=== PATIENT | female | born 1970 | race Caucasian/White ===

== ENCOUNTER 2020-09-13 09:06 | Emergency (ER) | payer MEDICAID ==
[2020-09-13] VITALS (9 sets, daily range): BP systolic 64–105; BP diastolic 31–58
[~2020-09-13] VITALS: Ht 149.9 cm; Wt 51.0 kg
[2020-09-13] MEDS: IV NORMAL SALINE 1,000ML 1,000 ML IV ONE (09:45)
--- NOTE | 2020-09-13 09:49 | PHYS DOC ---
Past History Past Medical History: Other (" Developmental delay") Past Surgical History: No Surgical History Smoking: Non-smoker Alcohol Use: None Drug Use: None Adult General Chief Complaint Chief Complaint: ALTERED MENTAL STATUS HPI HPI Patient is a 50-year-old female presenting via EMS for altered mental status. Patient a poor historian, as a result majority of history obtained by EMS. EMS was called to the house by a mother who is primary commodity merchant. She reports patient has history of developmental delay with no other significant medical issues or known comorbidities, no medications on a daily basis. Reports she is fairly independent of all activities of daily living and does utilize a walker to get around the house. With that said, approximately 4-5 days ago patient has been more weak and lethargic than usual. She has been less mobile preferring her left versus right hip without known fall/trauma and has had steady decline in p.o. intake. Today she was not as responsive to verbal stimuli which concerned mother prompting her to call EMS. On arrival, patient was found to be hypotensive (80/40)and hypoglycemic (25), 250 mls dextrose based solution bolused in route to our ER for evaluation Review of Systems Review of Systems ROS limited due to patient mentation Current Medications Current Medications Current Medications Medications (Trade) Dose Ordered Sig/Carine Start Time Stop Time Status Last Admin Dose Admin Azithromycin (Zithromax) 500 mg STK-MED ONCE 09/13/20 11:13 09/13/20 11:13 DC Azithromycin 500 mg/Sodium Chloride 250 ml @ 250 mls/hr 1X ONCE 09/13/20 11:00 09/13/20 11:59 DC 09/13/20 11:50 250 MLS/HR Ceftriaxone Sodium 2 gm/ Sodium Chloride 100 ml @ 200 mls/hr 1X ONCE 09/13/20 11:00 09/13/20 11:29 DC 09/13/20 11:20 200 MLS/HR Ceftriaxone Sodium (Rocephin) 2 gm STK-MED ONCE 09/13/20 11:13 09/13/20 11:13 DC Fentanyl Citrate (Fentanyl 2ml Vial) 100 mcg 1X ONCE 09/13/20 12:30 09/13/20 12:38 DC 09/13/20 12:43 100 MCG Lidocaine HCl 20 ml STK-MED ONCE 09/13/20 11:22 7/1/21 11:22 DC Sodium Chloride 100 ml @ As Directed STK-MED ONCE 09/13/20 11:13 09/13/20 11:13 DC Physical Exam Physical Exam Constitutional: Pt is alert but not oriented to person place or time. Pale appearing. Appears lethargic HEENT: Head: Normocephalic and atraumatic. TMs clear, no hemotympanum Conjunctivae and EOM are normal. Pupils are equal, round, and reactive to light. Oropharynx is clear and dry No hematomas or lacerations or abrasions to face or scalp OP clear, no blood, no malocclusion, dentition intact but there is poor overall dentition Nares clear, no nasal septal hematoma Midface stable Neck: C-spine midline nontender, no step-offs Cardiovascular: Normal rate, regular rhythm and normal heart sounds. Pulmonary/Chest: Increased work of breathing and accessory muscle use noted in neck only without any obvious/overt respiratory failure, there is wheezes globally on the end expiratory phase and rhonchi present in bilateral bases more prominent on right Abdominal: Soft. Bowel sounds are normal. Pt exhibits no distension. There is no tenderness. Musculoskeletal: Chest wall stable Pelvis tender to palpation bilaterally with concerning visual and palpable abnormality present to right trochanteric head No vertebral TTP and spine without stepoffs Edema present to left upper extremity and right lower extremity 1+ pitting Neurological: Pt is alert but not oriented to person place or time, GCS 11 (E 4, V2, M5) Spontaneously moving all fingers and toes but there is pain with mobilization of bilateral hips and left upper extremity with tenderness and increased edema Motor and sensory function grossly intact Downgoing toes bilaterally Cranial nerves II through XII intact Adequate rectal tone without any visual and/or palpable abnormalities during HEATHER Skin: Skin is warm and dry. No abrasions, no lacerations. There is concerning skin findings over the left nipple, concerning for skin cancer versus potential meta static process. There is peeling and crusting over generalized nipple region covering entirety of nipple and areola, no palpable and/or expressible exudate present Psychiatric: Unable to fully assess Current Patient Data Vital Signs Vital Signs Date Time Temp Pulse Resp B/P (MAP) Pulse Ox O2 Delivery O2 Flow Rate FiO2 09/13/20 09:06 96.9 91 18 81/42 (55) 94 Room Air 09/13/20 10:24 2.0 Vital Signs Date Time Temp Pulse Resp B/P (MAP) Pulse Ox O2 Delivery O2 Flow Rate FiO2 09/13/20 15:57 100 20 79/47 (58) 100 09/13/20 15:15 97.0 09/13/20 12:43 Nasal Cannula 2.0 Lab Results Laboratory Tests Test 09/13/20 09:09 09/13/20 10:25 09/13/20 11:05 09/13/20 11:10 Glucose (Fingerstick) 100 mg/dL White Blood Count 1.5 x10^3/uL Red Blood Count 1.01 x10^6/uL Hemoglobin 3.6 g/dL Hematocrit 11.9 % Mean Corpuscular Volume 117 fL Mean Corpuscular Hemoglobin 35 pg Mean Corpuscular Hemoglobin Concent 30 g/dL Red Cell Distribution Width 26.2 % Platelet Count 34 x10^3/uL Neutrophils (%) (Auto) 75 % Lymphocytes (%) (Auto) 17 % Monocytes (%) (Auto) 7 % Eosinophils (%) (Auto) 2 % Basophils (%) (Auto) 0 % Neutrophils # (Auto) 1.1 x10^3uL Lymphocytes # (Auto) 0.2 x10^3/uL Monocytes # (Auto) 0.1 x10^3/uL Eosinophils # (Auto) 0.0 x10^3/uL Basophils # (Auto) 0.0 x10^3/uL Segmented Neutrophils % 17 % Band Neutrophils % 36 % Lymphocytes % 29 % Atypical Lymphocytes % (Manual) 1 % Monocytes % 10 % Metamyelocytes % 3 % Myelocytes % 2 % Promyelocytes % 2 % Blast Cells % (Manual) % Nucleated Red Blood Cells 12 Platelet Estimate Decreased Polychromasia Slight Poikilocytosis Mod Anisocytosis Marked Macrocytosis Marked Sodium Level 139 mmol/L Potassium Level 4.5 mmol/L Chloride Level 104 mmol/L Carbon Dioxide Level 16 mmol/L Anion Gap 19 Blood Urea Nitrogen 41 mg/dL Creatinine 2.5 mg/dL Estimated GFR (Cockcroft-Gault) 20.2 BUN/Creatinine Ratio 16 Glucose Level 91 mg/dL Lactic Acid Level 6.8 mmol/L Calcium Level 7.3 mg/dL Total Bilirubin 2.2 mg/dL Aspartate Amino Transf (AST/SGOT) 223 U/L Alanine Aminotransferase (ALT/SGPT) 81 U/L Alkaline Phosphatase 408 U/L Troponin I Quantitative 0.060 ng/mL [id number] Natriuretic Peptide 6587 pg/mL Total Protein 4.2 g/dL Albumin 1.9 g/dL Albumin/Globulin Ratio 0.8 Urine Collection Type Unknown Urine Color Yellow Urine Clarity Cloudy Urine pH 5.0 Urine Specific [place] 1.020 Urine Protein Neg Urine Glucose (UA) Neg mg/dL Urine Ketones (Stick) Neg mg/dL Urine Blood Neg Urine Nitrite Neg Urine Bilirubin Small Urine Urobilinogen Dipstick 1.0 mg/dL Urine Leukocyte Esterase Neg Urine RBC 1-2 /HPF Urine WBC 5-10 /HPF Urine Squamous Epithelial Cells Few /LPF Urine Bacteria Many /HPF Urine Hyaline Casts Few /HPF Urine Mucus Mod /LPF Stool Occult Blood Positive Test 09/13/20 14:15 Lactic Acid Level 4.1 mmol/L Current Medications Medications (Trade) Dose Ordered Sig/Carine Route PRN Reason Start Time Stop Time Status Last Admin Dose Admin Sodium Chloride 1,000 ml @ 1,000 mls/hr 1X ONCE IV 09/13/20 09:45 09/13/20 10:49 DC 09/13/20 09:45 1,000 MLS/HR Sodium Chloride 250 ml @ 0 mls/hr 1X ONCE IV 09/13/20 11:00 09/13/20 11:01 DC 09/13/20 11:00 999 MLS/HR Ceftriaxone Sodium 2 gm/ Sodium Chloride 100 ml @ 200 mls/hr 1X ONCE IV 09/13/20 11:00 09/13/20 11:29 DC 09/13/20 11:20 200 MLS/HR Azithromycin 500 mg/Sodium Chloride 250 ml @ 250 mls/hr 1X ONCE IV 09/13/20 11:00 09/13/20 11:59 DC 09/13/20 11:50 250 MLS/HR Fentanyl Citrate (Fentanyl 2ml Vial) 100 mcg STK-MED ONCE .ROUTE 09/13/20 10:58 09/13/20 10:58 DC Sodium Chloride 250 ml @ As Directed STK-MED ONCE .ROUTE 09/13/20 11:12 09/13/20 11:13 DC Azithromycin (Zithromax) 500 mg STK-MED ONCE IV 09/13/20 11:13 09/13/20 11:13 DC Ceftriaxone Sodium (Rocephin) 2 gm STK-MED ONCE IV 09/13/20 11:13 09/13/20 11:13 DC Sodium Chloride 100 ml @ As Directed STK-MED ONCE .ROUTE 09/13/20 11:13 09/13/20 11:13 DC Lidocaine HCl 20 ml STK-MED ONCE .ROUTE 09/13/20 11:22 09/13/20 11:22 DC Fentanyl Citrate (Fentanyl 2ml Vial) 100 mcg 1X ONCE IVP 09/13/20 12:30 09/13/20 12:38 DC 09/13/20 12:43 100 MCG EKG EKG EKG ordered and interpreted by myself 0925 hrs. is sinus rhythm at 91 bpm, unremarkable intervals, no axis deviation, nonspecific T wave abnormality in lead I otherwise no obvious ischemic findings, no STEMI Radiology/Procedures Radiology/Procedures Exam Date: 09/13/2020 10:[address] HEAD/BRAIN WO Indication: Reason: AMS / Spl. Instructions: / History: . TECHNIQUE: Head CT was performed without intravenous contrast. One or more of the following dose reduction techniques were utilized: *Automated exposure control (AEC) *Adjustment of mA and/or kV according to patient size *Use of iterative reconstruction technique *CT scan done according to ALARA, or ALARA/IMAGE GENTLY FINDINGS: The ventricles and sulci are normal for the patient's stated age. There is no evidence of acute intracranial hemorrhage, extra-axial collection, mass effect, midline shift, or acute territorial infarct. No lesion of the skull base or the calvarium is seen. The visualized paranasal sinuses, mastoid air cells and orbits are normal in appearance. IMPRESSION: No evidence for acute intracranial abnormality. Electronically signed by: Easton Rosario MD (09/13/2020 10:04 AM) [id number] ///////////////// Exam Date: 09/13/2020 10:01 AM XR CHEST 1V Indication: Reason: ams, sepsis / Spl. Instructions: / History: . FINDINGS/ IMPRESSION: There are patchy infiltrates and/or atelectasis in the left mid to lower lung lira suspicious for pneumonia. No appreciable pleural effusion or pneumothorax. Follow-up chest radiographs to resolution are recommended. The cardiac silhouette and pulmonary vasculature are within normal limits. Electronically signed by: Easton Rosario MD (09/13/2020 10:05 AM) [id number] ////////////// Exam Date: 09/13/2020 10:01 AM XR PELVIS 1-2V Indication: Reason: ams, sepsis, S/P FALL / Spl. Instructions: / History: . COMPARISON: CT from September 13, 2020 FINDINGS/ IMPRESSION: Subacute or chronic right femoral neck fracture is again seen with superolateral displacement of the shaft. Oblique subacute right subtrochanteric subtrochanter ic fracture is again seen. Alignment and position are similar compared to the prior exam. There is a nondisplaced acute or subacute fracture of the left superior pubic ramus. Mild sclerosis involving the left inferior pubic ramus could represent a healing or healed fracture. Mild degenerative changes seen in the left hip. Degenerative changes are noted in the lower lumbar spine and SI joints. Electronically signed by: Easton Rosario MD (09/13/2020 10:13 AM) [id number] ////////////// Left forearm 2 views. HISTORY: Left lateral epicondyles pain 2 views were taken of the left forearm. There is not evidence of an acute fracture or osseous abnormality. A true lateral view the elbow could potentially be of benefit. There is no osseous abnormality at the lateral epicondyles of the humerus. IMPRESSION: 1. Negative left forearm. Electronically signed by: Tanner Toro MD (09/13/2020 10:44 AM) [id number] //////////////// XR CHEST 1V History: Post central line placement. Comparison: 09/13/2020 Technique: Portable AP radiograph of the chest. Findings: New right internal jugular central venous catheter with tip projecting at the right atrium. Low lung volumes with bilateral infiltrates similar to comparison greatest at the left midlung. No pleural effusion or pneumothorax. Stable cardiomegaly mediastinal silhouette. Impression: 1. New right internal jugular central venous catheter with tip projecting at the right atrium. Electronically signed by: Abraham Sanchez MD (09/13/2020 12:35 PM) [id number] Heart Score C/O Chest Pain: N/A HEART Score for Chest Pain: HEART Score for Chest Pain Response (Comments) Value History Moderately Suspicious 1 ECG Nonspecific Repolarizatio 1 Age >45 - < 65 1 Risk Factors 1 or 2 Risk Factors 1 Troponin >1-<3x Normal Limit 1 Total 5 Risk Factors: Risk Factors: DM, Current or recent (<one month) smoker, HTN, HLP, family history of CAD, obesity. Risk Scores: Risk Factors: DM, Current or recent (<one month) smoker, HTN, HLP, family history of CAD, obesity. Course & Med Decision Making Course & Med Decision Making Airway patent, increased work of breathing present with adequate oxygenation and ventilation, peripheral right AC IV in place on arrival with 250 mils dextrose containing solution administered per EMS and subsequent vitals obtained concerning for profound hypotension Repeat POC glucose obtained and unremarkable. 30 ml/kg IV fluid rehydration bolused with improvement in patient's blood pressure. History limited initially with physical exam concerning for potential respiratory pathogen and bony abnormality to pelvis ER work-up obtained and there was initial concern for pneumonia, IV Rocephin and azithromycin administered. Also concerning for subacute versus chronic fractures of pelvis in absence of any known trauma. I fear breast cancer with metastatic spread given clinical presentation Mother eventually came to ER and further history obtained. She admits there is been no obvious trauma that she was aware of. No fever, sick contacts, recent changes in health, recent travel. Mother reports overall decline, decreased mobility, decreased p.o. intake and skin findings to left breast were all new findings within the past week, I highly doubt this. Mother has been stressed as is currently hospitalized at [facility] with cancer diagnosis. Patient hotlined Verbal and written consent from mother obtained for insertion of right IJ CVL given ongoing hypotension and need for administration of blood products and potential vasopressors. I discussed severity of situation and critical nature of patient, mother wants to keep patient full code I contacted orthopedic surgery at [facility] and reviewed case with them in addition to radiology, there is consensus and fear that these fractures are indeed subacute versus chronic and likely due to undiagnosed metastatic process such as multiple myeloma versus other As such, [facility] was contacted due to need of higher acuity of care than is available at [facility]. Critical Care Time This patient required critical care. Due to the fact that the patient required a significant amount of one on one physician - patient contact time, ordering and review of studies, arranging urgent treatment with development of a management plan, evaluation of patients response to treatment with frequent reassessments, and discussions with other providers this patient required 75 minutes of critical care time. Critical care time was indicated due to the inherent instab ility and/or potential for instability in this patient. The critical care time that is allocated to this patient is above and beyond any time spent on any other billable procedures performed on this patient. Dragon Disclaimer Dragon Disclaimer This electronic medical record was generated, in whole or in part, using a voice recognition dictation system. Central Line Central Line : Central Line Lumen: triple Central Line Procedure: betadine prep, sterile drapes applied, sterile dressing applied Central Line Postion: internal jugular (R) Anesthesia: Lidocaine Progress Indication, emergency vascular access for fluid and drug administration Informed consent. The risks of the procedure including bleeding, pneumothorax and infection were explained to patient's mother mother verbalized the understanding of the procedure and the risks, benefits and alternatives and wished to proceed Patient was placed in Trendelenburg position and the right neck area was prepped and draped in sterile fashion. The area of interest was anesthetized with local anesthetic. Using ultrasound guidance, with the introducer needle bevel orientated inferomedially, the right internal jugular area was entered shallowly advancing with continuous aspiration on the syringe until the right internal jugular vein was entered and there was free flow of venous blood. Salinger technique was then utilized place a central venous catheter over the guidewire and the catheter was secured in place. A portable chest x-ray was ordered to confirm the catheter's position. Estimated blood loss <10ml. Complications none Departure Departure: Impression: Primary Impression: Sepsis due to pneumonia Additional Impressions: Leukopenia Blood loss anemia Thrombocytopenia Closed pelvic fracture Closed fracture of right hip Closed fracture of trochanter of right femur Retraction of left nipple Disposition: [address] [facility] ([facility]) Admitting Physician: Other (dr. lemons) Condition: CRITICAL Referrals: ISSAC GREGORY MD (PCP) Problem Qualifiers ELIZABETH HAYDEN DO Sep 13, 2020 09:49
--- NOTE | 2020-09-13 10:07 | RAD ---
Exam Date: 09/13/2020 10:[address] HEAD/BRAIN WO Indication: Reason: AMS / Spl. Instructions: / History: . TECHNIQUE: Head CT was performed without intravenous contrast. One or more of the following dose re duction techniques were utilized: *Automated exposure control (AEC) *Adjustment of mA and/or kV according to patient size *Use of iterative reconstruction technique *CT scan done according to ALARA, or ALARA/IMAGE GENTLY FINDINGS: The ventricles and sulci are normal for the patient's stated age. There is no evidence of acute int racranial hemorrhage, extra-axial collection, mass effect, midline shift, or acute territorial infarc t. No lesion of the skull base or the calvarium is seen. The visualized paranasal sinuses, mastoid ai r cells and orbits are normal in appearance. IMPRESSION: No evidence for acute intracranial abnormality. Electronically signed by: Easton Rosario MD (09/13/2020 10:04 AM) [id number]
--- NOTE | 2020-09-13 10:08 | RAD ---
Exam Date: 09/13/2020 10:01 AM XR CHEST 1V Indication: Reason: ams, sepsis / Spl. Instructions: / History: . FINDINGS/ IMPRESSION: There are patchy infiltrates and/or atelectasis in the left mid to lower lung lira suspicious for p neumonia. No appreciable pleural effusion or pneumothorax. Follow-up chest radiographs to resolution are recommended. The cardiac silhouette and pulmonary vasculature are within normal limits. Electronically signed by: Easton Rosario MD (09/13/2020 10:05 AM) [id number]
--- NOTE | 2020-09-13 10:15 | RAD ---
Exam Date: 09/13/2020 10:01 AM XR PELVIS 1-2V Indication: Reason: ams, sepsis, S/P FALL / Spl. Instructions: / History: . COMPARISON: CT from September 13, 2020 FINDINGS/ IMPRESSION: Subacute or chronic right femoral neck fracture is again seen with superolateral displacement of the shaft. Oblique subacute right subtrochanteric subtrochanteric fracture is again seen. Alignment and p osition are similar compared to the prior exam. There is a nondisplaced acute or subacute fracture of the left superior pubic ramus. Mild sclerosis i nvolving the left inferior pubic ramus could represent a healing or healed fracture. Mild degenerativ e changes seen in the left hip. Degenerative changes are noted in the lower lumbar spine and SI joint s. Electronically signed by: Easton Rosario MD (09/13/2020 10:13 AM) [id number]
--- NOTE | 2020-09-13 10:38 | RAD ---
EXAMINATION: CT PELVIS WO, 09/13/2020 10:01 AM CLINICAL INDICATION: Fall, hip fracture COMPARISON: Pelvis radiograph same day TECHNIQUE: Helical CT imaging performed of the pelvis without the use of intravenous contrast. Sagitt al and coronal reformats were obtained. One or more of the following individualized dose reduction techniques were utilized for this examinat ion: 1. Automated exposure control 2. Adjustment of the mA and/or kV according to patient size 3. Use of iterative reconstruction technique. FINDINGS: There is a complete, displaced right subcapital femoral neck fracture with proximal and lat eral migration of the femoral shaft. This appears subacute with a small amount of surrounding callus around the femoral head fragment. No bridging bone or callus. There is a subacute/healing nondisplace d right subtrochanteric femoral fracture with callus formation along the shaft but a persistent fract ure lucency. There is a right hip joint effusion and iliopsoas bursitis. . Healing nondisplaced left superior pubic ramus fracture. Diffuse subcutaneous edema in the thighs and lower abdomen. The urinar y bladder is very distended. IMPRESSION: 1. Displaced right subtrochanteric femoral fracture and nondisplaced right subtrochanteric femoral fr acture. These appear subacute with some callus formation, particularly around the subtrochanteric por tion. Small right hip joint effusion and iliopsoas bursitis. 2. Healing left superior pubic ramus fracture. 3. Diffuse subcutaneous edema. 4. Very distended urinary bladder. Electronically signed by: Tiffanie Zeng MD (09/13/2020 10:35 AM) [id number]
[2020-09-13 10:46] LABS: BASO % 0 % (0-3); EOS % 2 % (0-3); LYMPH # 0.2 x10^3/uL (1.0-4.8); LYMPH % 17 % (24-48); MEAN CORPUSCULAR HEMOGLOBIN 35 pg (25-35); MEAN CORPUSCULAR HGB CONC 30 g/dL (31-37); MEAN CORPUSCULAR VOLUME 117 fL (79-100); MONO # 0.1 x10^3/uL (0.0-1.1); MONO % 7 % (0-9); NEUT # 1.1 x10^3uL (1.8-7.7); NEUT % 75 % (31-73); PLATELET COUNT 34 x10^3/uL (140-400); RED BLOOD COUNT 1.01 x10^6/uL (3.50-5.40); RED CELL DISTRIBUTION WIDTH 26.2 % (11.5-14.5)
--- NOTE | 2020-09-13 10:46 | RAD ---
Left forearm 2 views. HISTORY: Left lateral epicondyles pain 2 views were taken of the left forearm. There is not evidence of an acute fracture or osseous abnorma lity. A true lateral view the elbow could potentially be of benefit. There is no osseous abnormality at the lateral epicondyles of the humerus. IMPRESSION: 1. Negative left forearm. Electronically signed by: Tanner Toro MD (09/13/2020 10:44 AM) [id number]
[2020-09-13 10:47] LABS: HEMOGLOBIN 3.6 g/dL (12.0-15.5); WHITE BLOOD COUNT 1.5 x10^3/uL (4.0-11.0)
[2020-09-13 10:48] LABS: HEMATOCRIT 11.9 % (36.0-47.0)
[2020-09-13 10:49] LABS: CALCIUM 7.3 mg/dL (8.5-10.1); CREATININE 2.5 mg/dL (0.6-1.0); GFR 20.2; POTASSIUM 4.5 mmol/L (3.5-5.1)
[2020-09-13] MEDS: IV NORMAL SALINE 250ML 250 ML IV ONE (11:00)
[2020-09-13 11:02] LABS: ALBUMIN 1.9 g/dL (3.4-5.0); ALBUMIN/GLOBULIN RATIO 0.8 (1.0-1.7); TOTAL BILIRUBIN 2.2 mg/dL (0.2-1.0); TOTAL PROTEIN 4.2 g/dL (6.4-8.2)
[2020-09-13] MEDS ORDERED: IV NORMAL SALINE 250ML 250 ML ONE (11:12)
[2020-09-13] MEDS ORDERED: IV NORMAL SALINE 100ML 100 ML ONE (11:13)
[2020-09-13] MEDS ORDERED: AZITHROMYCIN 500 MG VIAL. IV ONE (11:13)
[2020-09-13] MEDS ORDERED: LIDOCAINE 2% 20 ML VIAL. ONE (11:22)
[2020-09-13 11:44] LABS: % BANDS 36 % (0-9); % LYMPHS 29 % (24-48); % METAS 3 % (0-0); % MONOS 10 % (0-10); % MYELOS 2 % (0-0); % PROS 2 % (0-0); % SEGS 17 % (35-66)
[2020-09-13 11:45] LABS: % ATYL 1 % (0-0); ANISOCYTOSIS MARKED; NUCLEATED RBC 12; PLT ESTIMATE DECREASED (ADEQUATE); POIKILOCYTOSIS MOD; POLYCHROMASIA SLIGHT
[2020-09-13 11:49] LABS: BILIRUBIN,URINE SMALL (NEG); CLARITY,URINE CLOUDY; COLOR,URINE YELLOW; GLUCOSE,URINE NEG (NEG)
[2020-09-13 11:50] LABS: NITRITE,URINE NEG (NEG)
[2020-09-13] MEDS: AZITHROMYCIN 500 MG in IV NORMAL SALINE 250ML 250 ML IV ONE (11:50)
[2020-09-13 11:53] LABS: BACTERIA,URINE MANY /HPF (0-FEW); SQUAMOUS EPITHELIAL CELL,UR FEW /LPF
[2020-09-13 11:56] LABS: HYALINE CASTS, URINE FEW /HPF
--- NOTE | 2020-09-13 12:37 | RAD ---
XR CHEST 1V History: Post central line placement. Comparison: 09/13/2020 Technique: Portable AP radiograph of the chest. Findings: New right internal jugular central venous catheter with tip projecting at the right atrium. Low lung volumes with bilateral infiltrates similar to comparison greatest at the left midlung. No pleural eff usion or pneumothorax. Stable cardiomegaly mediastinal silhouette. Impression: 1. New right internal jugular central venous catheter with tip projecting at the right atrium. Electronically signed by: Abraham Sanchez MD (09/13/2020 12:35 PM) [id number]
[2020-09-13 14:09] LABS: FECAL OB PT POSITIVE (NEG)
[2020-09-13] MEDS ORDERED: NOREPINEPHRINE BITARTRATE 4 MG/4 ML VIAL. IV ONE ×2 (16:02→16:03)
--- NOTE | 2020-09-13 20:13 | EKG ---
[address] [address] Test Date: 2020-09-13 Test Time: 09:17:39 Pat Name: MARY LUNA Department: Room: Gender: F Financial Analysis Manager: RACHELL : 1970 Requested By: ELIZABETH HAYDEN Order Number: [id number] Reading MD: Measurements Intervals [place] Rate: 91 P: 47 [place]: 124 QRS: 8 QRSD: 74 T: 116 QT: 354 QTc: 437 Interpretive Statements SINUS RHYTHM LOW LIMB LEAD VOLTAGE T ABNORMALITY IN HIGH LATERAL LEADS ABNORMAL ECG RI6.02 No previous ECG available for comparison
== END 2020-09-13 16:35 | disposition short-term general hospital (02) ==
LOC: ER 09:06
DX: S72.001A Fracture of unspecified part of neck of right femur, initial encounter for closed fracture (principal); S72.101A Unspecified trochanteric fracture of right femur, initial encounter for closed fracture; S32.512A Fracture of superior rim of left pubis, initial encounter for closed fracture; A41.9 Sepsis, unspecified organism; R41.82 Altered mental status, unspecified; D72.819 Decreased white blood cell count, unspecified; D50.0 Iron deficiency anemia secondary to blood loss (chronic); D69.6 Thrombocytopenia, unspecified; X58.XXXA Exposure to other specified factors, initial encounter; Y93.89 Activity, other specified; Y92.89 Other specified places as the place of occurrence of the external cause; Y99.8 Other external cause status
CPT/HCPCS: 36415; 36430; 36556; 70450; 71045; 72170; 72192; 73090; 80053; 81001; 82274; 82947; 83605; 83880; 84484; 85007; 85025; 86850; 86900; 86901; 86920; 87040; 87086; 87205; 93005; 96361; 96365; 96375; 96376; 99291; 99292; J0456; J0696; J3010; J7030; J7050; P9016